=== PATIENT | female | born 1965 | race Two or more races ===

== ENCOUNTER 2023-11-07 10:30 | Emergency (ER) | payer OTHER ==
[~2023-11-07] VITALS: Ht 162.6 cm; Wt 104.3 kg
[2023-11-07] MEDS ORDERED: HYDRALAZINE HCL50 MG PO (10:54)
[2023-11-07] MEDS ORDERED: CARVEDILOL12.5 M1 PO (10:55)
[2023-11-07] MEDS ORDERED: NORVASC5 MG PO (10:55)
[2023-11-07] MEDS ORDERED: DEXAMETHASONE SODIUM PHOSPHATE 4 MG/ML VIAL IM STA (11:30)
[2023-11-07] MEDS ORDERED: KETOROLAC TROMETHAMINE 60 MG VIAL IM STA (11:30)
[2023-11-07] MEDS ORDERED: MEDROLPACK PO (12:51)
[2023-11-07] MEDS ORDERED: NORFLEX100MG PO (12:51)
[2023-11-07] MEDS ORDERED: DICLOFENAC POTA50 MG PO (12:51)
== END 2023-11-07 13:17 | disposition home or self-care (01) ==
LOC: ER 10:31
DX: M25.562 Pain in left knee (principal); I10 Essential (primary) hypertension